=== PATIENT | male | born 1975 | race Caucasian/White ===

== ENCOUNTER 2018-10-27 19:04 | Emergency (ER) | payer OTHER ==
[~2018-10-27] VITALS: Ht 177.8 cm; Wt 82.5 kg
[2018-10-27 19:06] VITALS: BP 133/83
[2018-10-27] MEDS ORDERED: KETOROLAC 30 MG/1 ML IM ONE (20:00)
[2018-10-27] MEDS ORDERED: KETOROLAC 30 MG/1 ML ONE (20:03)
--- NOTE | 2018-10-27 20:27 | NUR ---
PT REFUSING SPLINT. POC IS DC. AWAITING DC INSTRUCTIONS.
--- NOTE | 2018-10-27 20:53 | NUR ---
DC EDCUATION PROVIDED, PT DEMONSTRATES UNDERSTANDING. PT AMBULATED STEADILY WITH OWN CRUTCHES TO DC WITH FRIEND AND RN
== END 2018-10-27 20:55 | disposition home or self-care (01) ==
LOC: ED 20:30
DX: S82.892A Other fracture of left lower leg, initial encounter for closed fracture (principal); F17.200 Nicotine dependence, unspecified, uncomplicated; Z72.9 Problem related to lifestyle, unspecified; Z75.9 Unspecified problem related to medical facilities and other health care; Z91.14 Patient's other noncompliance with medication regimen; Z59.0 Homelessness; X58.XXXA Exposure to other specified factors, initial encounter; Y93.89 Activity, other specified; Y92.89 Other specified places as the place of occurrence of the external cause; Y99.8 Other external cause status
CPT/HCPCS: 73610; 96372; 99283; J1885

== ENCOUNTER 2018-11-01 14:33 | Emergency (ER) | payer SELFPAY ==
[~2018-11-01] VITALS: Ht 177.8 cm; Wt 96.0 kg
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
[2018-11-01 14:57] VITALS: BP 144/68
[2018-11-01] MEDS ORDERED: KETOROLAC 30 MG/1 ML IM ONE (15:00)
[2018-11-01] MEDS ORDERED: KETOROLAC 30 MG/1 ML ONE (15:08)
--- NOTE | 2018-11-01 15:12 | NUR ---
PT STATING HE WANTS A [place] BUS PASS. HE IS DENYING SUICIDE AND HOMICIDE AND WOULD LIKE TO GO TO THE [facility]ESS [facility] AT THIS TIME.
--- NOTE | 2018-11-01 15:37 | NUR ---
PT GIVEN A TAXI VOUCHER TO [facility] STRE[address].
== END 2018-11-01 15:39 | disposition home or self-care (01) ==
LOC: ED 15:16
DX: M25.572 Pain in left ankle and joints of left foot (principal); G89.18 Other acute postprocedural pain
CPT/HCPCS: 96372; 99283; J1885